=== PATIENT | male | born 1975 | race Caucasian/White ===

== ENCOUNTER 2024-01-05 01:24 | Emergency (ER) | payer BC, SELFPAY ==
[2024-01-05 01:26] VITALS: BP 160/125; PULSE 134; RESP 18; TEMP 36.8; O2SAT 97; BMI 29.9
--- OUTSIDE RECORDS SUMMARY | 2024-01-05 01:48 | XMS RPT_ITS | CCD ---
Author Organization [facility] Care Team Providers Care Spice Miller Name Role Phone Randy Chen MD Primary Care Provider Medications Current Medications Medication Drug Class(es) Dates Sig (Normalized) Sig (Original) atorvastatin 80 mg oral tablet (1 source) HMG-CoA Reductase Inhibitor Start: 03-27-2021 End: 09-23-2021 take 1 tablet by mouth once daily at bedtime for hyperlipidemia atorvastatin (LIPITOR) 80 mg tablet Indications: Hyperlipidemia, mixed Take 1 tablet by mouth daily at bedtime. For cholesterol. 90 tablet 1 03/27/2021 09/23/2021 Active Comment on above: Take 1 tablet by breanna daily at bedtime. For cholesterol. Completed/Discontinued Medications Medication Drug Class(es) Dates Sig (Normalized) Sig (Original) cholecalciferol 1.25 mg oral capsule (1 source) Vitamin D Start: 03-27-2021 take 1 capsule by mouth every week cholecalciferol, Vitamin D3, (VITAMIN D3) 1,250 mcg (50,000 unit) cap capsule Indications: Vitamin D deficiency Take 1 capsule by mouth one time a week. 12 capsule 0 03/27/2021 Active Comment on above: Take 1 capsule by mo [facility] one time a week. 24 hr nicotine 0.292 mg/hr transdermal system (3 sources) Cholinergic Nicotinic Agonist Start: 03-21-2021 apply 1 dose transdermal route every twenty-four hours nicotine (NICODERM) 14 mg/24 hr Apply 1 Patch as directed every 24 hours. No smoking with patch. 42 Patch 0 03/21/2021 Active Start: 03-21-2021 apply 1 dose transde rmal route every twenty-four hours nicotine (NICODERM) 21 mg/24 hr Indications: Tobacco abuse Apply 1 Patch as directed every 24 hours. 42 Patch 0 03/21/2021 Active Start: 03-21-2021 nicotine (ANGIE DERM) 7 mg/24 hr Indications: Tobacco abuse Apply 1 Patch as directed every 24 hours for 14 days. 14 Patch 0 03/21/2021 Active Comment on above: Apply 1 Patch as dir ected every 24 hours for 14 days. Apply 1 Patch as dir ected every 24 hours. No smoking with patch. Apply 1 Patch as dir ected every 24 hours. Problems Active Problems Problem Classification Problem Date Documented Da te Episodic/Chronic Disorders of lipid metabolism (1 source) Mixed hyperlipidemia; Translations: [Mixed hyperlipidemia] Chronic Nutritional deficiencies (3 sources) Vitamin D deficiency; Translations: [Vitamin D deficiency, unspecified] Onset: 08-07-2017 Chronic Other nutritional; endocrine; and metabolic disorders (1 source) Obesity; Translations: [Other obesity due to excess calories] Onset: 03-21-2021 03-21-2021 Chronic Other nutritional; endocrine; and metabolic disorders (1 source) Obesity caused by energy imbalance; Translations: [Other obesity due to excess calories] Onset: 03-21-2021 03-21-2021 Chronic Past or Other Problems Problem Classification Problem Date Documented Da te Episodic/Chronic Other infections; including parasitic (2 sources) Personal history of other infectious and parasitic diseases; Translations: [History of COVID-19] Onset: 01-09-2021 03-21-2021 Episodic Residual codes; unclassified (2 sources) Tobacco user; Translations: [Tobacco use] Onset: 11-03-2012 11-03-2012 Episodic Results Test Name Value Interpretation Reference Range Facil ity CNCOon 10-10-2023 [facility] Letter Text Normal [facility] VITAMIN D 25 HYDROXYon 06-19 25-hydroxyvitamin D3 [Mass/Vol] 74.4 ng/mL 31.0 - 80.0 ng/mL [facility] ic LIPID PANEL BASICon 06-19-19 22 Cholesterol [Mass/Vol] 209 mg/dL High <200 mg/dL [facility] Cholesterol in HDL [Mass/Vol] 37 mg/dL Low >39 mg/dL [facility] Cholesterol in LDL [Mass/Vol] 155 mg/dL High <100 mg/dL [facility] Cholesterol in LDL/Cholesterol in HDL [Mass ratio] 4.19 {ratio} High <2.54 [facility] VLDL [Mass/Vol] 17 mg/dL <30 mg/dL [facility] Cholesterol non HDL [Mass/Vol] 172 mg/dL High <130 mg/dL [facility] Cholesterol.total/Cho lesterol in HDL [Mass ratio] 5.65 {ratio} High <5.10 [facility] Fasting Time 12 hrs [facility] inic Triglyceride [Mass/Vol] 86 mg/dL <150 mg/dL [facility] Encounters Encounter Date Encounter Type Care Provider Facility Start: 09-18-2023 ambulatory Randy Chen MD Work Phone: [facility] Start: 09-18-2023 Patient encounter procedure Randy Chen MD Work Phone: [facility] [place] Comment on above: colonoscopy/office v isit/quality teams calling Start: 03-27-2021 Telephone encounter Angel Chen MD Work Phone: Family [facility] Comment on above: Results Procedures Date Procedure Procedure Detail Performing Clinician Start: 06-17-2021 Lipid 1996 panel - S kitty or Plasma Randy Chen MD Work Phone: Start: 03-21-2021 Adult depression screening assessment Randy Chen MD Work Phone: Plan of Treatment Date Care Activity Detail Author Start: 02-07-2028 Urine microalbumin profile [facility] Start: 06-17-2026 Lipid panel Lipid Screening [facility] Start: 06-17-2026 LIPID SCREEN LIPID SCREEN [facility] Start: 03-25-2024 Diabetes Screening Diabetes Screenin g [facility] Start: 11-10-2023 Influenza vaccination Influenza Vacc ine (#1) [facility] Start: 11-09-2022 Covid-19 Vaccine ( season) Covid-19 Vaccine () [facility] Start: 2022 Screening for malign ant neoplasm of colon [facility] Start: 03-21-2022 Adult depression screening assessment DEPRESSION SCREENING [facility] Start: 03-21-2022 COVID-19 VACCINE (#1) COVID-19 VACCI NE (#1) [facility] Comment on above: Postponed from 08/23 (Declined at this time) Start: 11-09-2021 Influenza vaccination INFLUENZA (Sea son Ended) [facility] Start: 02-06-2019 Pneumococcal vaccination Pneum ococcal Vaccine (2 of 2 - PCV) [facility] Start: 1996 Hepatitis B Vaccine (1 of 3 - 19+ 3-dose series) Hepatitis B Vaccine (1 of 3 - 19+ 3-dose series) [facility] Start: 08-24-1995 Anxiety Screening Anxiety Screening [facility] Start: 08-24-1995 Depression Screening Depression Scre ening [facility] Immunizations Immunization Date Immunization Notes Care Provider Candace jones 02-06-2018 pneumococcal polysaccharide vaccine, 23 valent Randy Chen MD Work Phone: [facility] 02-06-2018 tetanus toxoid, redu jeremi diphtheria toxoid, and acellular pertussis vaccine, adsorbed Randy Chen MD Work Phone: [facility] 02-06-2018 influenza virus vacc ine, unspecified formulation Randy Chen MD Work Phone: [facility] Payers Date Payer Category Payer Unknown [employer] PPO OOS [id number] 2019-Present [phone] [address] [place] [address] PPO [id number] 2019 Unknown [employer] PPO OOS [id number] 2019-Present [phone] [address] [place] [address] PPO [id number] Social History Date Type Detail Facility Start: 11-03-2012 End: 03-21-2021 Tobacco smoking status NHIS Smokes tobacco daily [facility] Work Phone: History of tobacco use Cigarette Smoker C [facility] Work Phone: Start: 11-03-2012 End: 02-17-2020 Cigarettes smoked current (pack per day) - Reported 1 [facility] Start: 11-03-2012 End: 03-21-2021 Tobacco use and exposure Former smokeless tobacco user [facility] Work Phone: End: 01-19-2021 History of tobacco use User of smokeless tobacco [facility] Work Phone: Start: 03-21-2021 Alcohol intake Current drinker of alcohol (finding) [facility] Start: 03-21-2021 History SDOH Alcohol Frequency 3 [facility] Start: 03-21-2021 History SDOH Alcohol Std Drinks 2 [facility] Start: 11-03-2012 History SDOH Alcohol Comment occasionally [facility] Start: 03-21-2021 History SDOH Social Connections Phone 5 [facility] Start: 03-21-2021 History SDOH Social Connections Meetings 1 [facility] Start: 03-21-2021 History SDOH Social Connections Living 6 [facility] Start: 1975 Sex Assigned At Male [facility] Start: 06-05-2021 End: 06-15-2021 Exposure to SARS-CoV-2 (event) Not sure [facility] Start: 02-17-2020 End: 03-21-2021 Social connection and isolation panel [facility] Do you belong to any clubs or organizations such as sabianism groups, unions, fraternal or athletic groups, or school groups? No [facility] Are you now , , , , never or living with a partner? [facility] How often to you hav e a drink containing alcohol? 2-4 times a month [facility] How many standard dr inks containing alcohol do you have on a typical day? 3 or 4 [facility] How often do you hav e 6 or more drinks on 1 occasion? Less than monthly [facility] How hard is it for y ou to pay for the very basics like food, housing, medical care, and heating Somewhat hard [facility] Adult Depression Screening Assessment 0 [facility] Do you feel stress - tense, restless, nervous, or anxious, or unable to sleep at night because your mind is troubled all the time - these days [OSQ] To some extent [facility] (I/We) worried wheth er (my/our) food would run out before (I/we) got money to buy more. Never true [facility] Start: 03-21-2021 Gender identity Identifies as male gender (finding) [facility] Start: 03-21-2021 Sexual orientation Heterosexual (finding) [facility] Progress note 10-10-2023 Note Date & Type Note Facility 10-10-2023 Note HNO ID: [id number] Author: SWATI PRADHAN LPN Service: ? Author Type: LICENSED NURSE Type: Progress Notes Filed: 10/10/2023 11:37 Note Text: 3rd attempt to reach pt by phone. Left a message for pt to call the office. Please give message below. Also letter sent. Swati Pradhan LPN [facility] History of Present illness Narrative 10-10-2023 Swati Pradhan LPN - 10/10/2023 11:35 AM EDTSSwati soto LPN - 09/25/2023 8:06 AM EDTSSwati soto LPN - 09/18/2023 9:28 AM EDT Note Date & Type Note Facility 10-10-2023 History of Presen t illness Narrative 3rd attempt to reach pt by phone. Left a message for pt to call the office. Please give message below. Also letter sent. Swati Pradhan LPN 2nd attempt to reach pt without success. Left a message for pt to call the office. See message below. Swati Pradhan LPN 1st attempt to reach pt by phone. Left a message to call the office and ask to speak to nurse. Please give pt message below. Swati Pradhan LPN We have attempted to reach you by phone without success. You are past due for your colonoscopy and office visit with Dr. Chen/Team. Please call the office to schedule apt with Dr. Chen/Team. Pt's need to be seen at least once a year to keep provider. Last seen 03/21/21. After 3 years and not being seen by your provider/team, they will no longer be considered your provider. Please call the [phone] and ask to speak to a construction scheduler. Thank you, ANNIKA Sung documented in this encounter [facility] Progress note 09-25-2023 Note Date & Type Note Facility 09-25-2023 Note HNO ID: [id number] Author: SWATI PRADHAN LPN Service: ? Author Type: LICENSED NURSE Type: Progress Notes Filed: 10/10/2023 11:37 Note Text: 2nd attempt to reach pt without success. Left a message for pt to call the office. See message below. Swati Pradhan LPN [facility] Progress note 09-18-2023 Note Date & Type Note Facility 09-18-2023 Note HNO ID: [id number] Author: SWATI PRADHAN LPN Service: ? Author Type: LICENSED NURSE Type: Progress Notes Filed: 10/10/2023 11:37 Note Text: 1st attempt to reach pt by phone. Left a message to call the office and ask to speak to nurse. Please give pt message below. Swati Pradhan LPN We have attempted to reach you by phone without success. You are past due for your colonoscopy and office visit with Dr. Chen/Team. Please call the office to schedule apt with Dr. Chen/Team. Pt's need to be seen at least once a year to keep provider. Last seen 03/21/21. After 3 years and not being seen by your provider/team, they will no longer be considered your provider. Please call the [phone] and ask to speak to a construction scheduler. Thank you, ANNIKA Sung [facility] Clinical Note 09-18-2023 Note Date & Type Note Facility 09-18-2023 Note Patient Outreach (FA MPWS) TOÑO STACK ([id number]) 1975 M Date Time Provider Department 09/18/23 RANDY CHEN During your visit today, we recorded the following information about you: Swati Pradhan LPN 10/10/2023 11:37 AM Signed 1st attempt to reach pt by phone. Left a message to call the office and ask to speak to nurse. Please give pt message below. Swati Pradhan LPN We have attempted to reach you by phone without success. You are past due for your colonoscopy and office visit with Dr. Chen/Team. Please call the office to schedule apt with Dr. Chen/Team. Pt's need to be seen at least once a year to keep provider. Last seen 03/21/21. After 3 years and not being seen by your provider/team, they will no longer be considered your provider. Please call the [phone] and ask to speak to a construction scheduler. Thank you, ANNIKA Sung Laurie Lynn, LPN 10/10/2023 11:37 AM Signed 2nd attempt to reach pt without success. Left a message for pt to call the office. See message below. ANNIKA Baeza Laurie Lynn, LPN 10/10/2023 11:37 AM Signed 3rd attempt to reach pt by phone. Left a message for pt to call the office. Please give message below. Also letter sent. Swati Pradhan LPN Allergies As of Date: 09/18/2023 (No Known Allergies) Date Reviewed: 03/21/2021 Reviewed by: Jerson Blanca MA - Fully Assessed Reason for Visit: colonoscopy/office visit/quality teams calling [Other] Prescriptions as of 10/10/2023 - cholecalciferol, Vitamin D3, (VITAMIN D3) 1,250 mcg (50,000 unit) cap capsule Take 1 capsule by mouth one time a week. - atorvastatin (LIPITOR) 80 mg tablet Take 1 tablet by mouth daily at bedtime. For cholesterol. - nicotine (NICODERM) 7 mg/24 hr Apply 1 Patch as directed every 24 hours for 14 days. - nicotine (NICODERM) 14 mg/24 hr Apply 1 Patch as directed every 24 hours. No smoking with patch. - nicotine (NICODERM) 21 mg/24 hr Apply 1 Patch as directed every 24 hours. Meds Comments as of 11/03/2012: No daily medications Problem List As Of Date 09/18/2023 Noted Resolved Tobacco abuse [Z72.0] 11/03/2012 Vitamin D deficiency [E55.9] 08/07/2017 History of COVID-19 [Z86.16] 01/2021 Class 1 obesity due to excess calories without *03/21/2021 Encounter Status:Closed by SW[facility]I [facility]10/[facility] Telephone Encounter - Rachell Kerns LPN - 03/27/2021 9:00 AM ESTTelephone Encounter - Randy Chen MD - 03/27/2021 8:09 AM EST Note Date & Type Note Facility 03-27-2021 Miscellaneous Notes Telephoned pt. Made aware of results and new orders. Pt voiced understanding. HIV and hepatitis C screening negative. Vitamin D level severely low. Recommend 50,000 units of vitamin D weekly x 12 weeks and recheck in 3 months. Total cholesterol and LDL are extremely elevated. Recommend low cholesterol diet, exercise and high intensity statin to reduce his risk of heart attack and stroke. Most common side effect: muscle aches. Recheck labs in 3 months. Other labs unremarkable. documented in this encounter [facility] Evaluation note Note Date & Type Note Facility Evaluation note Diagnosis Vitamin D deficiency- Primary Unspecified vitamin D deficiency Hyperlipidemia, mixed Mixed hyperlipidemia documented in this encounter [facility] Summary Purpose Family History No Family History Records Found Advance Directives No Advanced Directives Records Found Additional Source Comments Source Comments (unrecognize d section and content) In the event this informatio n is protected by the Federal Confidentiality of Alcohol and Drug Abuse Patient Records regulations: The Federal rules restrict any use of the information to criminally investigate or prosecute any alcohol or drug abuse patient.[facility] the event this information is protected by the Federal Confidentiality of Alcohol and Drug Abuse Patient Records regulations: The Federal rules restrict any use of the information to criminally investigate or prosecute any alcohol or drug abuse patient.[facility] Reason for Visit (unrecogniz ed section and content) Reason Comments Results Reason Onset Date Comments colonoscopy/office visit/quality teams calling 0 09/18/2023 Care Teams (unrecognized sec tion and content) Spice Miller Relationship Specialty Start Date End Date Randy Chen MD [address] [place] [address] PCP - General Family Practice 02/06/18 Spice Miller Relationship Specialty Start Date End Date Randy Chen MD [address] [place] [address] PCP - General Family Medicine 02/06/18 (unrecognized sect ion and content) No Status Records Found INFORMATION SOURCE (unrecogn ized section and content) DATE CREATED AUTHOR 10/12/2023 [facility] FOR RECORDS PERTAINING TO PATIENTS WHO ARE OR HAVE BEEN ENROLLED IN A CHEMICAL DEPENDENCY/SUBSTANCEABUSE PROGRAM, SOME INFORMATION MAY BE OMITTED. This clinical summary was aggregated from multiple sources. Caution should be exercised in using it in the provision of clinical care. This summary normalizes information from multiple sources, and as a consequence, information in this document may materially change the coding, format and clinical context of patient data. In addition, data may be omitted in some cases. CLINICAL DECISIONS SHOULD BE BASED ON THE PRIMARY CLINICAL RECORDS. [facility]. provides no warranty or guarantee of the accuracy or completeness of information in this document.
--- NOTE | 2024-01-05 02:38 | CT_ITS ---
INDICATION: injury EXAMINATION: CT FACIAL BONES - CT Maxillofacial W/O Contrast Injection TECHNIQUE: Helically acquired images were obtained of the facial bones. A radiation dose optimization technique was used for this scan. The protocol utilizes one or more of the following dose reduction techniques: automated exposure control, adjustment of mA and/or kV according to patient size,and/or use of iterative reconstruction technique. IV Contrast dosage and agent: None. RADIATION DOSAGE (If Supplied By Facility): CTDIvol = ( 29.38 ) mGy, DLP = ( 650.30 ) mGycm COMPARISON: No relevant prior comparison study available FINDINGS: ORBITS: No fracture demonstrated. Globes appear intact. No retrobulbar hematoma. NASAL BONES: Unremarkable. NASOETHMOID COMPLEX: Unremarkable. ZYGOMATIC ARCHES: Unremarkable. MAXILLAE: Unremarkable. PTERYGOID PLATES: Unremarkable. MANDIBLE: No fracture demonstrated. No dislocation at the temporomandibular joints. SINUSES: Minimal mucosal thickening in the maxillary sinuses. SOFT TISSUES: Soft tissue swelling in the left frontal/supraorbital region with laceration. OTHER: None. CT/Sinus/Facial Bone IMPRESSION: No evidence of fracture. Electronically Signed: Jacqueline Hunter MD at 4:18 EDT ,
--- NOTE | 2024-01-05 02:38 | CT_ITS ---
INDICATION: head injury EXAMINATION: CT BRAIN - CT Head or Brain W/O Contrast Injection TECHNIQUE: Multiple axial images were obtained of the head without intravenous contrast. The protocol utilizes one or more of the following dose reduction techniques: automated exposure control, adjustment of mA and/or kV according to patient size,and/or use of iterative reconstruction technique. IV Contrast dosage and agent: None. RADIATION DOSAGE (If Supplied By Facility): CTDIvol = ( 44.99 ) mGy, DLP = ( 863.60 ) mGycm COMPARISON: No relevant prior comparison study available FINDINGS: BRAIN: No acute bleed. No edema. Logan-white matter differentiation is maintained. VENTRICLES AND SULCI: Not dilated. EXTRA-AXIAL: No hemorrhage, fluid collection, or mass. CALVARIUM / SKULL BASE: Unremarkable. FACE/SINUSES: Unremarkable. SOFT TISSUES: Soft tissue swelling in the left frontal scalp anteriorly with scalp laceration. CT/Brain/Head without Contrast IMPRESSION: Scalp contusion. No evidence of acute intracranial injury. Electronically Signed: Jacqueline Hunter MD at 3:35 EDT ,
--- NOTE | 2024-01-05 02:38 | CT_ITS ---
INDICATION: injury EXAMINATION: CT CERVICAL SPINE - CT Spine Cervical W/O Contrast Injection TECHNIQUE: Helically acquired images were obtained of the cervical spine. 2D reformatted images were reviewed. The protocol utilizes one or more of the following dose reduction techniques: automated exposure control, adjustment of mA and/or kV according to patient size,and/or use of iterative reconstruction technique. IV Contrast dosage and agent: None. RADIATION DOSAGE (If Supplied By Facility): CTDIvol = ( 24.82 ) mGy, DLP = ( 528.45 ) mGycm COMPARISON: No relevant prior comparison study available FINDINGS: ALIGNMENT: No subluxation. Straightening of the normal curvature. MINERALIZATION: Normal. VERTEBRAL BODIES: No fracture or acute abnormality. DISC SPACES: Disc space narrowing with osteophytes C5-C7. POSTERIOR ELEMENTS: Mild facet arthropathy at several levels. SPINAL CANAL: Maintained. PARASPINAL SOFT TISSUES: Unremarkable. OTHER: None. CT/Spine Cervical without Contras IMPRESSION: No evidence of fracture or subluxation. Straightening of the normal curve may be due to positioning or muscle spasm. Electronically Signed: Jacqueline Hunter MD at 3:38 EDT ,
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
[2024-01-05] MEDS: Lidocaine 1% (20 ml mdv) 20 ML Vial INFILT (02:47)
[2024-01-05 04:43] VITALS: BP 132/89; PULSE 98; RESP 18; TEMP 36.8; O2SAT 97
== END 2024-01-05 04:45 | disposition home or self-care (01) ==
PROVIDERS: Emergency Provider Emergency Medicine; Visit Provider Emergency Medicine
DX: S01.81XA Laceration without foreign body of other part of head, initial encounter (principal); V86.65XA Passenger of 3- or 4- wheeled all-terrain vehicle (ATV) injured in nontraffic accident, initial encounter; F10.90 Alcohol use, unspecified, uncomplicated; E78.5 Hyperlipidemia, unspecified; Z87.891 Personal history of nicotine dependence
CPT/HCPCS: 12013; 70450; 70486; 72125; 99283